=== PATIENT | female | born 2000 | race Caucasian/White ===

== ENCOUNTER 2020-02-26 17:15 | Emergency (ER) | payer BC ==
[~2020-02-26] VITALS: Ht 167.6 cm; Wt 85.6 kg
[2020-02-26 17:53] LABS: BASOPHILS % (AUTO) 1 % (0-1); EOSINOPHILS % (AUTO) 1 % (1-7); LYMPHOCYTES % (AUTO) 20 % (22-44); MEAN CORPUSCULAR HEMOGLOBIN 30.5 pg (27.0-34.8); MEAN CORPUSCULAR HGB CONC 34.4 g/dL (32.4-35.8); MEAN PLATELET VOLUME 7.5 fL (7.4-10.4); MONOCYTES % (AUTO) 8 % (2-9); NEUTROPHILS % (AUTO) 71 % (42-75); PLATELET COUNT 379 x10^3/uL (130-400); RED BLOOD COUNT 4.83 x10^6/uL (3.82-5.3); RED CELL DISTRIBUTION WIDTH 12.9 % (9.6-15.2)
[2020-02-26 17:57] LABS: MD NO
[2020-02-26] MEDS ORDERED: SODIUM CHLORIDE 0.9% 1,000ML IVBOLUS ONE (18:00)
[2020-02-26 18:01] LABS: ALANINE AMINOTRANSFERASE 14 U/L (12-78); ALBUMIN 4.5 g/dL (3.4-5.0); ANION GAP 5 mmol/L (5-15); CALCIUM 9.8 mg/dL (8.5-10.1); CHLORIDE 106 mmol/L (98-107)
[2020-02-26 18:06] LABS: ALKALINE PHOSPHATASE 85 U/L (45-117); BILIRUBIN,TOTAL 0.4 mg/dL (0.2-1.0); CREATININE 0.75 mg/dL (0.55-1.02); TOTAL PROTEIN 8.6 g/dL (6.4-8.2)
--- NOTE | 2020-02-26 18:14 | NUR ---
THIS IS A 19F WHO WAS DOING SOME LIGHT LIFTING AND HAD A SYNCOPAL EPISODE FOR PROBABLY LESS THAN ONE MINUTE. THIS HAPPENED TO HER IN [employer] ONCE WE[employer]. NO INCONTINENCE NOTED. AFTER HER SYNCOPAL EPISODE, SHE WAS UNABLE TO MOVE EXTREMITIES FOR [address] HAS BEEN TO BEDSIDE. CALL LIGHT IN PLACE. FATHER AT BEDSIDE. NO ADDITIONAL NEEDS AT THIS TIME.
--- NOTE | 2020-02-26 19:05 | NUR ---
REPORT FROM VIDYA ASSUMED CARE OF PT
[2020-02-26 19:31] VITALS: BP 129/60
--- NOTE | 2020-02-26 19:32 | NUR ---
ORTHO STATICS DONE
--- NOTE | 2020-02-26 19:59 | NUR ---
Patient/Caregiver given discharge instructions and they have confirmed that they understand the instructions. Patient ambulatory with steady gait.
== END 2020-02-26 20:11 | disposition home or self-care (01) ==
LOC: ED 19:59
DX: R55 Syncope and collapse (principal); R00.0 Tachycardia, unspecified
CPT/HCPCS: 36415; 80053; 84703; 85025; 93005; 99284; J7030